=== PATIENT | female | born 1980 | race Caucasian/White ===

== ENCOUNTER 2018-08-24 17:30 | Inpatient (IN) | payer OTHER ==
[2018-08-24] MEDS ORDERED: METHYLERGONOVINE 0.2 MG INJ IM (18:00)
[2018-08-24] MEDS ORDERED: CARBOPROST 250 MCG INJ IM (18:00)
[2018-08-24] MEDS ORDERED: OXYTOCIN 30 UNITS/LR 500 ML IV (18:00)
[2018-08-24] MEDS ORDERED: MISOPROSTOL 200 MCG TAB PR (18:00)
[2018-08-24] MEDS: LACTATED RINGER'S 1,000 ML IV ×2 (18:17→22:18)
[2018-08-24 18:29] LABS: ADD MAN DIFF? NO
[2018-08-24 18:34] LABS: BASOPHIL # 0.1 10^3/ul (0.0-0.1); BASOPHILS % 0.5 % (0.0-2.0); EOSINOPHILS # 0.1 10^3/ul (0.0-0.5); EOSINOPHILS % 0.5 % (0.0-7.0); HEMATOCRIT 37.5 % (37.0-47.0); LYMPHOCYTES # 2.6 10^3/ul (0.8-2.9); LYMPHOCYTES % 25.3 % (15.0-51.0); MEAN CORPUSCULAR HEMOGLOBIN 31.6 pg (29.0-33.0); MEAN CORPUSCULAR HGB CONC 34.7 g/dl (32.0-37.0); MEAN PLATELET VOLUME 10.3 fl (7.4-10.4); MONOCYTE # 0.7 10^3/ul (0.3-0.9); NEUTROPHIL # 6.8 10^3/ul (1.6-7.5); NEUTROPHILS % 65.1 % (39.0-77.0); PLATELET COUNT 250 10^3/UL (140-415); RED BLOOD COUNT 4.12 10^6/ul (4.20-5.40); RED CELL DISTRIBUTION WIDTH 13.1 % (11.5-14.5)
[2018-08-24 18:34] LABS: WHITE BLOOD COUNT 10.4 10^3/ul (4.8-10.8)
[2018-08-24 18:54] LABS: INR 0.87; PROTIME 11.9 Sec (11.9-14.9); PT RATIO 0.9
[2018-08-24 18:55] LABS: PARTIAL THROMBOPLASTIN TIME 29.2 Sec (23.0-35.0)
[2018-08-24 19:44] LABS: HEPATITIS B SURFACE ANTIGEN NEGATIVE (NEGATIVE)
[2018-08-24] MEDS ORDERED: OXYCODONE/ACETAMINOPHEN (5/325) TAB PO (22:30)
[2018-08-24] MEDS ORDERED: ONDANSETRON 4 MG INJ (23:45)
[2018-08-24] MEDS ORDERED: OXYTOCIN 10 UNIT INJ (23:45)
[2018-08-24] MEDS ORDERED: morphine SULFATE/PF (10 MG/10 ML) INJ (23:45)
[2018-08-25] MEDS: MISOPROSTOL 200 MCG TAB PR (01:00)
[2018-08-25] MEDS ORDERED: OXYTOCIN 30 UNITS/LR 500 ML BAG IV (01:06)
[2018-08-25] MEDS ORDERED: NALOXONE (0.4 MG/ML) INJ IV (01:30)
[2018-08-25] MEDS ORDERED: morphine 2 MG INJ IV (01:30)
[2018-08-25] MEDS ORDERED: ONDANSETRON 4 MG INJ IV (01:30)
[2018-08-25] MEDS: CEFAZOLIN 2 GM/50 ML (PMX) 50 ML IVPB (01:32)
[2018-08-25] MEDS: LACTATED RINGER'S 1,000 ML IV ×3 (01:39→18:17)
[2018-08-25] MEDS: OXYTOCIN 30 UNITS/LR 500 ML IV ×2 (01:57→05:35)
[2018-08-25] MEDS: KETOROLAC 30 MG INJ IV ×4 (03:09→22:33)
[2018-08-25] MEDS: DIPHENHYDRAMINE 50 MG INJ IV ×3 (05:23→16:05)
[2018-08-25] MEDS: IBUPROFEN 600 MG TAB PO ×5 (06:00→23:50)
[2018-08-25 08:13] LABS: ADD MAN DIFF? NO
[2018-08-25 08:16] LABS: BASOPHILS % 0.3 % (0.0-2.0); EOSINOPHILS % 0.4 % (0.0-7.0); HEMATOCRIT 34.9 % (37.0-47.0); LYMPHOCYTES # 2.5 10^3/ul (0.8-2.9); LYMPHOCYTES % 22.1 % (15.0-51.0); MEAN CORPUSCULAR HEMOGLOBIN 31.3 pg (29.0-33.0); MEAN CORPUSCULAR HGB CONC 34.4 g/dl (32.0-37.0); MEAN CORPUSCULAR VOLUME 90.9 fl (82.0-101.0); MEAN PLATELET VOLUME 10.3 fl (7.4-10.4); MONOCYTE # 0.7 10^3/ul (0.3-0.9); MONOCYTES % 6.1 % (0.0-11.0); PLATELET COUNT 220 10^3/UL (140-415); RED BLOOD COUNT 3.84 10^6/ul (4.20-5.40); RED CELL DISTRIBUTION WIDTH 12.9 % (11.5-14.5)
[2018-08-25 08:16] LABS: WHITE BLOOD COUNT 11.4 10^3/ul (4.8-10.8)
[2018-08-25] MEDS: SENNA/DOCUSATE NA (8.6MG/50MG) TAB PO ×2 (09:00→20:52)
[2018-08-25 15:08] LABS: RAPID PLASMA REAGIN NONREACTIVE (NR)
[2018-08-26] MEDS: LACTATED RINGER'S 1,000 ML IV (01:39)
[2018-08-26] MEDS: OXYCODONE/ACETAMINOPHEN (5/325) TAB PO ×3 (05:15→23:02)
[2018-08-26] MEDS: IBUPROFEN 600 MG TAB PO ×4 (06:01→23:48)
[2018-08-26] MEDS: LANOLIN HPA 1 PKT TOP (10:26)
[2018-08-26] MEDS: SENNA/DOCUSATE NA (8.6MG/50MG) TAB PO ×2 (10:26→21:35)
[2018-08-27] MEDS: IBUPROFEN 600 MG TAB PO ×4 (05:44→23:39)
[2018-08-27] MEDS: SENNA/DOCUSATE NA (8.6MG/50MG) TAB PO ×2 (08:32→20:41)
[2018-08-27] MEDS: OXYCODONE/ACETAMINOPHEN (5/325) TAB PO ×2 (08:32→18:57)
[2018-08-27] MEDS: DIPHTH/TET/ACEL PERTUSS (ADULT) 0.5 ML VIAL IM* (09:00)
[2018-08-27] MEDS: MEASLES,MUMPS,RUBELLA VACCINE INJ SC* (09:00)
[2018-08-27] MEDS: NA PHOSPHATE/BIPHOS 133 ML ENEMA PR (12:30)
[2018-08-28] MEDS: OXYCODONE/ACETAMINOPHEN (5/325) TAB PO ×3 (00:07→15:10)
[2018-08-28] MEDS: IBUPROFEN 600 MG TAB PO ×2 (05:36→12:49)
[2018-08-28] MEDS: SENNA/DOCUSATE NA (8.6MG/50MG) TAB PO (08:03)
== END 2018-08-28 15:46 | disposition home or self-care (01) | DRG 785 ==
LOC: L-D 08-25 01:41 → PP1 08-25 03:34 → L-D 23:23
PROVIDERS: Specialist
PROC: 10D00Z1 Extraction of Products of Conception, Low, Open Approach (ICD-10-PCS; principal; 2018-08-24)
PROC: 0UT70ZZ Resection of Bilateral Fallopian Tubes, Open Approach (ICD-10-PCS; 2018-08-24)
DX: O65.5 Obstructed labor due to abnormality of maternal pelvic organs (principal); O99.214 Obesity complicating childbirth; O34.211 Maternal care for low transverse scar from previous cesarean delivery; Z3A.39 39 weeks gestation of pregnancy; Z37.0 Single live birth; Z30.2 Encounter for sterilization
CPT/HCPCS: 85025; 85610; 85730; 86592; 86850; 86900; 86901; 87340; 88302; 99464